=== PATIENT | female | born 1955 | race Caucasian/White ===

== ENCOUNTER 2016-05-27 06:25 | Inpatient (IN) | payer BC ==
--- NOTE | 2016-05-16 00:12 | HP ---
ADMISSION HISTORY AND PHYSICAL: DATE OF ADMISSION: 05/27/16 ATTENDING SURGEON: Kodak Acosta MD (dictated by JEANMARIE Staton) CHIEF COMPLAINT: Morbid obesity. HISTORY OF PRESENT ILLNESS: This is a 60-year-old female who first presented to our for bariatric evaluation in September 2015. Her weight and dietary record are outlined in her chart record. She completed baseline lab work, which showed a normal serum cortisol and TSH. Her vitamin D was low at 24.1 and she has since maintained vitamin D supplementation. She was also noted to be low on vitamin B1 and has had subsequently maintained a Super B-Complex supplement. A esophagogram/barium swallow had been performed in 2008 showing normal esophageal and gastric anatomy. She did not require any further diagnostic imaging. She did complete nutritional and psychological evaluations. She has been seen on a number of occasions by Dr. Acosta who has felt her to be an appropriate candidate for surgery. She understands the indications, risks, benefits, and alternatives of surgery and would like to proceed as scheduled with laparoscopic sleeve gastrectomy. PAST MEDICAL HISTORY: 1. Morbid obesity. 2. Obstructive sleep apnea (on CPAP). 3. Impaired fasting glucose. 4. ROBERTSON (hypertension). 5. Dyslipidemia. 6. Degenerative joint disease. 7. Asymptomatic cholelithiasis (the patient did have discussion with Dr. Acosta regarding possible cholecystectomy in conjunction with her planned surgery but this is felt at this point to be unnecessary). 8. Allergic rhinitis. PAST SURGICAL HISTORY: Include: 1. Right total knee arthroplasty. 2. Bilateral LASIK surgery. 3. Right carpal tunnel release. 4. x1 (via low transverse incision). CURRENT MEDICATIONS: 1. Lisinopril 5 mg once daily. 2. Singulair 10 mg once daily. 3. Naproxen 500 mg b.i.d. 4. Ambien 5 mg at bedtime p.r.n. for insomnia (uses infrequently). 5. Estrace vaginal cream p.r.n. 6. Valtrex p.r.n. for oral herpes (has not needed recently). 7. Vitamin D3 2000 IU once daily. 8. Magnesium 400 mg q.p.m. (for leg cramps). 9. Probiotic once daily. 10. Cinnamon 2000 mg once daily. 11. Super B-Complex once daily. DRUG ALLERGIES: MELOXICAM (Rash) (she does tolerate other NSAIDs). FAMILY HISTORY: Negative for anesthesia problems, bleeding, or clotting disorders. SOCIAL HISTORY: The patient is . She is employed as an RN in the Gastroenterology Department at [employer] She is a lifelong nonsmoker. Drinks alcohol infrequently and denies other drug use. REVIEW OF SYSTEMS: General: No recent constitutional symptoms or acute illnesses. HEENT: No recent problems reported. Cardiovascular: History of hypertension. No history of chest pain, palpitations, or heart murmur. Respiratory: No history of asthma. Her allergic rhinitis symptoms are currently well controlled. GI: No GERD symptoms. No lower GI symptoms. Colonoscopy done in 2005 with recommended repeat in 10 years. : No problems reported. SLEEVER: She is due for annual breast and pelvic exams in May with no interval problems reported. Mammogram also done within the past year. Musculoskeletal: Ongoing left knee pain with anticipation at some point in the future of left knee replacement. She has done well from her right knee replacement. Skin: No skin lesions or rashes of concern. Neuropsychiatric: No additions. Endocrine: Impaired fasting glucose with most recent A1c of 6.1. No history of thyroid dysfunction. PHYSICAL EXAMINATION GENERAL: Well-nourished obese female, in no acute distress. VITAL SIGNS: Height 66 inches, weight 250 pounds, BMI 40.3, blood pressure 144/ 84, pulse 62, and respirations 18. HEENT: Pupils equal, round, and reactive. EOMs intact. No conjunctival pallor. Oropharynx: Teeth in good repair. No intraoral lesions. Neck: no lymphadenopathy, thyromegaly, or masses. LUNGS: Clear to auscultation. No rales or wheezes. HEART: Regular rate and rhythm. No murmur noted. BREAST: Not reexamined. ABDOMEN: Obese, soft, and nontender to palpation. No palpable masses or organomegaly. GENITALIA: Not done. RECTAL: Not done. BACK: No spinous process or CVA tenderness. EXTREMITIES: No edema. NEUROLOGIC: Grossly intact. SKIN: Warm and dry. No suspicious rashes or lesions noted. IMPRESSION: Morbid obesity. PLAN: Laparoscopic sleeve gastrectomy. JEANMARIE STATON CC: Eryn Monae NP, at [facility]* [id number]/CPS #: [id number] MTDD
[~2016-05-27 06:25] MED LIST: Buffered Lidocaine 1% SYR 3ML* 3 ML/SYR SYRINGE INTRADERM ONE; Dexamethasone IV* 4 MG/ML 1 ML (4 MG) IV SLOW PU ONE; Famotidine IV* 10 MG/ML 2 ML (20 mg) IV ONE; Scopolamine 1.5 mg* PATCH TRANSDERM ONE
[2016-05-27] MEDS ORDERED: Bupivacaine 0.5% W/EPI SDV* 30 ML VIAL ONE (06:57)
[2016-05-27] MEDS ORDERED: Buffered Lidocaine 1% SYR 3ML* 3 ML/SYR SYRINGE ONE (07:06)
[2016-05-27] MEDS ORDERED: ceFAZolin 2 GM PREMIX (*) 2 GM/50 ML BAG IVPB ONE (07:06)
[2016-05-27] MEDS ORDERED: Heparin VIAL(*) 5000 UNITS/ML VIAL (FIVE THOUSAND) ONE (07:06)
[2016-05-27] MEDS ORDERED: Dexamethasone IV* 4 MG/ML 1 ML (4 MG) ONE (07:06)
[2016-05-27] MEDS ORDERED: Famotidine IV* 10 MG/ML 2 ML (20 mg) ONE (07:06)
[2016-05-27] MEDS ORDERED: Scopolamine 1.5 mg* PATCH ONE (07:06)
[2016-05-27] MEDS ORDERED: Surgical Lubricant STERILE* 120 GM TOP.GEL ONE (07:30)
[2016-05-27] MEDS ORDERED: Propofol* 10 MG/ML 20 ML BTL IV PUSH ONE (07:44)
[2016-05-27] MEDS ORDERED: Rocuronium* 10 MG/ML VIAL ONE (07:44)
[2016-05-27] MEDS ORDERED: Lidocaine 2% MPF* 2 ML VIAL ONE (07:44)
[2016-05-27] MEDS ORDERED: Midazolam* 1 MG/ML 5 ML VIAL (5 MG) ONE (07:45)
[2016-05-27] MEDS ORDERED: fentaNYL* 50 MCG/ML 2 ML VIAL (100 MCG VIAL) ONE ×5 (07:45→11:26)
[2016-05-27] MEDS ORDERED: PROCHLORPERAZINE INJ 5 MG/ML 2 ML VIAL IV PRN (08:09)
[2016-05-27] MEDS ORDERED: Acetaminophen IV 1GM/100ML * 100 ML IVPB ONE (08:09)
[2016-05-27] MEDS ORDERED: EPHEDrine (Pressors)* 50 MG/ML VIAL ONE (08:53)
[2016-05-27] MEDS ORDERED: Ketorolac INJ* 30 MG/ML 1 ML VIAL ONE (08:59)
[2016-05-27] MEDS ORDERED: Ondansetron INJ* 2 MG/ML VIAL ONE (09:13)
[2016-05-27] MEDS ORDERED: Glycopyrrolate IV* 0.2 MG/ML 1 ML VIAL ONE (09:19)
[2016-05-27] MEDS ORDERED: Neostigmine Methylsulfate* 2 MG/2 ML SYRINGE ONE (09:19)
[2016-05-27] MEDS ORDERED: Acetaminophen IV 1GM/100ML * 100 ML ONE (09:26)
[2016-05-27] MEDS ORDERED: Acetaminophen ADULT LIQ* 650 MG/20.3 ML UDC PO PRN (09:28)
[2016-05-27] MEDS ORDERED: Ondansetron INJ* 2 MG/ML VIAL IV PRN (09:28)
--- NOTE | 2016-05-27 09:33 | SURGPN ---
Brief Operative Note - Surgery Procedures: PREOP/POSTOP DX: MORBID OBESITY PROC: LAP SLEEVE GASTRECTOMY SURG: MECENAS ASSIST: KIMBERLY ANES: GET/DALE EBL: MIN IVF: LR SPEC: PORTION OF STOMACH DRAIN: NONE COMPL: NONE COND: STABLE TO RR EXTUBATED.
[2016-05-27] MEDS ORDERED: Famotidine IV * 20 MG in NS 0.9% 100 ML* 100 ML IVPB SCH (10:00)
[2016-05-27] MEDS: fentaNYL* 50 MCG/ML 2 ML VIAL (100 MCG VIAL) IV PRN ×5 (10:01→11:35)
[2016-05-27] MEDS ORDERED: Morphine INJ* 10 MG/ML 1 ML CARPUJECT ONE (10:13)
[2016-05-27] MEDS: Morphine INJ* 2 MG/ML 1 ML CARPUJECT IV PRN ×2 (10:17→10:38)
[2016-05-27] MEDS ORDERED: diPHENhydraMINE IV* 50 MG/ML 1 ml VIAL (BENADRYL) SLOW PUSH SCH (12:30)
[2016-05-27] MEDS: Heparin VIAL(*) 5000 UNITS/ML VIAL (FIVE THOUSAND) SUBCUT SCH ×2 (13:28→21:55)
[2016-05-27] MEDS: Ketorolac INJ* 30 MG/ML 1 ML VIAL IV PRN (13:28)
[2016-05-27] MEDS ORDERED: diPHENhydraMINE IV* 50 MG/ML 1 ml VIAL (BENADRYL) SLOW PUSH PRN (13:36)
[2016-05-27] MEDS: HYDROmorphone INJ* 1 MG/ML CARPUJECT SYRINGE IV PRN ×2 (15:12→21:52)
[2016-05-27] MEDS: Famotidine IV* 10 MG/ML 2 ML (20 mg) IV SCH (18:36)
[2016-05-28] MEDS: HYDROmorphone INJ* 1 MG/ML CARPUJECT SYRINGE IV PRN ×2 (01:38→06:08)
--- NOTE | 2016-05-28 01:55 | OP ---
DATE OF OPERATION: 05/27/16 - ROOM #353 DATE OF : 55 SURGEON: Dr. Acosta. SAP SOLUTION MANAGER CONSULTANT: Que Collnis MD ANESTHESIOLOGIST: Kenisha Espino MD ANESTHESIA: General endotracheal. PRE-OP DIAGNOSIS: Morbid obesity. POST-OP DIAGNOSIS: Morbid obesity. OPERATIVE PROCEDURE: Laparoscopic sleeve gastrectomy. ESTIMATED BLOOD LOSS: Minimal. IV FLUIDS: Crystalloids. SPECIMEN: Portion of stomach. DRAINS: None. COMPLICATIONS: None. COUNTS: The instrument, needle, and sponge counts were correct. DESCRIPTION OF PROCEDURE: The patient was brought to the operating room and placed on table supine. Sequential compression devices were placed on both lower extremities. General anesthesia was administered. The patient was positioned and padded appropriately. She received appropriate intravenous antibiotics. The patient's abdomen was prepped and draped in the usual sterile fashion. Time-out was performed. Local anesthetic was infiltrated into the skin and soft tissue prior to making each incision. Entry to the abdomen was through a left upper quadrant incision accommodating a 5-mm optical trocar. After accessing the peritoneal cavity, carbon dioxide was insufflated to a pressure of 15 mmHg. Under direct visualization, a 12 mm bladeless trocar was placed in the supraumbilical midline , a 15 mm bladeless trocar was placed in the right upper quadrant, a 5 mm bladeless trocar was placed in the left upper quadrant laterally. A Sebas retractor was placed percutaneously in a subxiphoid position and used to elevate the left lobe of the liver. Gastric anatomy appeared normal. The mobilization of the stomach proceeded along the greater curvature starting 6 cm proximal to the pylorus. The LigaSure was used to devascularize the greater curvature all the way up to gastroesophageal junction. Subsequently, a sleeve gastrectomy was performed over a 40-Mexican bougie with a black reinforce stable cartilage on the antrum and purple reinforced staple cartilages along the remaining portions of the stomach. Once the sleeve gastrectomy was performed, the bougie was removed. Staple lines were inspected and noted to be intact and hemostatic. The specimen was removed through the right upper quadrant port site , which was subsequently closed with 0 Polysorb in interrupted fashion to approximate the fascia. The remaining trocars were removed under direct visualization. Carbon dioxide was released. The skin incisions were closed with daniela. Dressings were applied. The patient tolerated the procedure well. She was extubated and transferred to recovery room in stable condition. CC: Eryn Monae NP* [id number]/CPS #: [id number] MARIO
[2016-05-28] MEDS: Famotidine IV* 10 MG/ML 2 ML (20 mg) IV SCH ×2 (06:05→17:43)
[2016-05-28] MEDS: Heparin VIAL(*) 5000 UNITS/ML VIAL (FIVE THOUSAND) SUBCUT SCH ×3 (06:11→22:25)
--- NOTE | 2016-05-28 10:15 | PN ---
Progress Note - Progress Note SOAP: Subjective: []awake,walking in halls,taking clears,voiding,minimal pain Objective:lungs clear bilat;heart RRR,no m/r/g;abd:+bs,soft,incisions covered with dressings,not removed,no erythema;extremities:nontender,no edema Vital Signs Temp 97.9 F 05/28/16 07:54 Pulse 62 05/28/16 07:54 Resp 20 05/28/16 10:33 BP 138/92 05/28/16 07:54 Pulse Ox 98 05/28/16 07:54 Intake & Output 05/27/16 05/28/16 05/28/16 18:59 06:59 18:59 Intake Total 2500 1847 898 Output Total 1300 700 400 Balance 1200 1147 498 Weight 243 lb 12.8 oz Intake: IV Fluids 2500 1847 898 LR 2450 1847 898 NS 50ML, Cefazolin 2G 50 Oral 0 Output: Urine 1300 700 400 Assessment:POD #1 s/p lap sleeve gastrectomy,doing well [] Plan:continue keith clears,IVF,encourage ambulation and IS;resume Lisinopril, likely disch 05/29/16. []
[2016-05-28] MEDS: Lisinopril TAB* 5 MG PO SCH (10:33)
[2016-05-28] MEDS: HYDROcodone/ACET. 7.5/325 LIQ* 15 ML UDC PO PRN ×2 (10:33→22:24)
[2016-05-28] MEDS: D5W 1/2 NS KCl 20 Meq 1000 ML* 1,000 ML IV SCH ×2 (14:07→22:29)
[2016-05-28] MEDS: Ketorolac INJ* 30 MG/ML 1 ML VIAL IV PRN (14:10)
[2016-05-29] MEDS: HYDROcodone/ACET. 7.5/325 LIQ* 15 ML UDC PO PRN ×2 (04:44→08:21)
[2016-05-29] MEDS: Heparin VIAL(*) 5000 UNITS/ML VIAL (FIVE THOUSAND) SUBCUT SCH (06:00)
[2016-05-29] MEDS: Famotidine IV* 10 MG/ML 2 ML (20 mg) IV SCH (06:00)
[2016-05-29] MEDS: D5W 1/2 NS KCl 20 Meq 1000 ML* 1,000 ML IV SCH (06:00)
[2016-05-29 07:53] VITALS: BP 133/68
[2016-05-29] MEDS: Lisinopril TAB* 5 MG PO SCH (08:20)
--- NOTE | 2016-05-29 09:03 | PN ---
Progress Note - Progress Note SOAP: Discharge Note Subjective:awake,tolerating clears,minimal discomfort,walking,no dysuria,wants to go home [] Objective:lungs:clear bilat;Heart:RRR,no m/r/g;Abd;+bs,soft,all incisions intact with daniela,mild surrounding ecchymosis,no drainage;extremities: nontender,mild non pitting edema Vital Signs Temp 98.8 F 05/29/16 07:46 Pulse 74 05/29/16 07:46 Resp 16 05/29/16 08:21 BP 133/68 05/29/16 07:46 Pulse Ox 94 05/29/16 07:46 Intake & Output 05/28/16 05/29/16 05/29/16 18:59 06:59 18:59 Intake Total 1318 3181 Output Total 1050 3400 600 Balance 268 -219 -600 Intake: IV Fluids 898 1941 D5W 1/2 NS 20 meq KCL 1941 LR 898 IVPB 100 Famotidine 100 Oral 420 1140 Output: Urine 1050 3400 600 [] Assessment:POD#2 s/p sleeve gastrectomy,doing very well [] Plan:Discharge home,instructions reviewed,questions answered,followup appointment at [facility] scheduled []
--- NOTE | 2016-05-29 10:36 | DS ---
DISCHARGE SUMMARY: DATE OF ADMISSION: 05/27/16 DATE OF DISCHARGE: 05/29/16 ATTENDING PHYSICIAN: Dr. Kodak Acosta. HOSPITAL COURSE: Please refer to admission history and physical for admission details. The patient was taken to the operating room on 05/27/16 and underwent laparoscopic sleeve gastrectomy. She has had an uneventful postoperative course and as of the morning of discharge was tolerating 120 cc of clear liquids per hour and her pain was well controlled and she was ambulating. PHYSICAL EXAMINATION: Vital Signs: Temp max 98.4, blood pressure 133/68, pulse 74 and regular, respiratory rate 16, and O2 saturation on room air 94%. She is in no acute distress, sitting up at the edge of the bed taking fluids. Lungs: Breath sounds bilaterally clear and equal. No rales or wheezes. Heart : Regular rate and rhythm. No murmurs, rubs, or gallops. Abdomen: Active bowel sounds. Soft. Laparoscopic incision site is intact with daniela with moderate amount of ecchymosis around the two largest incisions, no active bleeding or drainage. Extremities are warm without tenderness and there is mild non-pitting edema. IMPRESSION: Status post laparoscopic sleeve gastrectomy, doing well. PLAN: Discharge home today, she will resume her usual lisinopril and Singulair ; she will follow the prescribed bariatric dietary guidelines and understands the importance of ambulation; a followup appointment was scheduled at the [facility] office on , 06/05/16, and she knows to call sooner with any concerns. LISETTE PRIEST NP CC: Dr. Acosta, [facility]; Eryn Monae [place] * [id number]/[facility] #: [id number] MARIO
[2016-05-30] MEDS ORDERED: Scopolamine PATCH Remove* 1 NOTE MISC PATCH OFF ONE (06:00)
== END 2016-05-29 10:55 | disposition home or self-care (01) | DRG 403 ==
LOC: AA 06:25 → SSU 11:50
PROVIDERS: ADMIT Surgery; ATTEND Surgery
PROC: 0DB64Z3 Excision of Stomach, Percutaneous Endoscopic Approach, Vertical (ICD-10-PCS; principal; 2016-05-27 08:00)
DX: E66.01 Morbid (severe) obesity due to excess calories (principal); K75.81 Nonalcoholic steatohepatitis (NASH); I10 Essential (primary) hypertension; G47.33 Obstructive sleep apnea (adult) (pediatric); R73.01 Impaired fasting glucose; M19.90 Unspecified osteoarthritis, unspecified site; K80.20 Calculus of gallbladder without cholecystitis without obstruction; J30.9 Allergic rhinitis, unspecified; Z96.651 Presence of right artificial knee joint; Z88.8 Allergy status to other drugs, medicaments and biological substances; Z72.89 Other problems related to lifestyle; Z68.41 Body mass index [BMI] 40.0-44.9, adult
CPT/HCPCS: 88307; 94760; A9270-GY; J0690; J1100; J1170; J1644; J1885; J2250; J2270; J2405; J2704; J3010

== ENCOUNTER 2019-07-21 06:18 | Inpatient (IN) | payer BC ==
--- NOTE | 2019-07-12 13:59 | HP ---
HISTORY AND PHYSICAL: DATE OF ADMISSION/SURGERY: 07/21/19 DATE OF OFFICE VISIT: 07/11/19 SURGEON: Deja Messina MD * (DICTATED BY JEANMARIE ZUNIGA) PROCEDURE: Left total knee arthroplasty. CHIEF COMPLAINT: Left knee pain. HISTORY OF PRESENT ILLNESS: Ms. Dumont is a 63-year-old female with end-stage osteoarthritis of the left knee. She has failed conservative treatment and elected to proceed with a left total knee arthroplasty. PAST MEDICAL HISTORY: GERD and hypertension. PAST SURGICAL HISTORY: Gastric sleeve, right total knee arthroplasty, right carpal tunnel release, and . CURRENT MEDICATIONS: 1. Lisinopril 2.5 mg daily. 2. Vitamin D3. 3. Vitamin B12. 4. Singulair. 5. Citracal. 6. Multivitamin. 7. Lutein. 8. Biotin. 9. Omeprazole 20 mg daily. ALLERGIES: To MELOXICAM. FAMILY HISTORY: Diabetes, cancer, and hypertension. SOCIAL HISTORY: She is a 63-year-old female. She lives with her . She does not smoke. REVIEW OF SYSTEMS: A complete 14-point review of systems was reviewed with the patient. It was positive for GERD. She denies history of DVT, PE, hepatitis, HIV, or anesthesia problems. PHYSICAL EXAMINATION GENERAL: She is well developed, well nourished, in no acute distress. VITAL SIGNS: She stands 66 inches tall, weighs 186 pounds. Her blood pressure is 108/62, her heart rate is 89. HEENT: Normocephalic, atraumatic. NECK: Supple. No palpable lymph nodes. PULMONARY: The lungs are clear to auscultation bilaterally. CARDIO: Regular rate and rhythm. Strong S1, S2. ABDOMEN: Soft, nontender, nondistended. NEUROLOGICAL: She is alert and oriented x3. MUSCULOSKELETAL: Left lower extremity: The skin is intact. There are no open wounds or abrasions. There is a moderate effusion of the left knee joint, some tenderness along the medial and lateral joint line. Range of motion is 10 to 120 degrees of flexion. She is able to dorsiflex and plantar flex, has a 2+ dorsalis pedis pulse and intact sensation. ASSESSMENT AND PLAN: Ms. Dumont is a 63-year-old female with severe end-stage osteoarthritis of the left knee. She has failed conservative treatment and elected to proceed with a left total knee arthroplasty. The surgery is scheduled for 07/21/[address] Messina discussed the risks and benefits of the surgery at today's visit and all of her questions were answered. She will follow up with Dr. Messina 2 weeks after the surgery. JEANMARIE ZUNIGA [id number]/[facility] #: [id number] MARIO
[~2019-07-21 06:18] MED LIST changes: -Buffered Lidocaine 1% SYR 3ML* 3 ML/SYR SYRINGE INTRADERM ONE; +Buffered Lidocaine 1% SYRIN* 1 ML/SYRINGE INTRADERM ONE; -Dexamethasone IV* 4 MG/ML 1 ML (4 MG) IV SLOW PU ONE; +Lactated Ringers 1000 ML Bag* 1,000 ML IV SCH; -Scopolamine 1.5 mg* PATCH TRANSDERM ONE; +Tranexamic Acid 1,000 MG in NS 0.9% 50 ML* (outpatient use) IV SCH
--- OUTSIDE RECORDS SUMMARY | 2019-07-21 06:22 | XMS REPORT | Continuity of Care Document ---
:1955 External Reference #:[id number] Author Name REJI Shi Address [address] [place] [address] Problems Active Problems Provider Date Pure hypercholesterolemia Carin Rodriguez M.D. Onset: 09/27/2010 Type 2 diabetes mellitus Carin Rodriguez M.D. Onset: 09/27/2010 Essential hypertension Carin Rodriguez M.D. Onset: 09/27/2010 Social History Type Date Description Comments Sex Unknown Cigarette Use Negative For current cigarette smoker ETOH Use Rarely consumes alcohol Tobacco Use Start: Unknown Patient has never smoked Recreational Drug Use Denies Drug Use Smoking Status Reviewed: 08/20/17 Patient has never smoked Enjoy Exercising Enjoys exercising some walking Allergies, Adverse Reactions, Alerts Active Allergies Reaction Severity Comments Date Mobic rash 06/13/2015 Inactive Allergies NKDA 09/27/2010 Medications Active Medications SIG Qnty Indications Ordering Date Provider Naproxen take one tablet by 60tabs Edgar Cifuentes 11/17/2018 500mg mouth twice a day REJI Orozco Tablets with food for pain/inflammation Montelukast Sodium take 1 tablet by 90tabs Swapna Horan 05/24/2018 mouth at bedtime Hebert RHollie 10mg Tablets Citracal 2 tabs daily Angie 08/20/2017 Petites/Vitamin D Shortle, CORRECTIONAL CLASSIFICATION COUNSELOR [id number] Tablets Omeprazole 1 by mouth every 90caps Edgar Cifuentes 08/20/2017 20mg day at bedtime REJI Orozco Capsules DR Lutein 20 1 po qd Eryn Michele, 08/08/2016 Capsules CLINICAL REHABILITATION SPECIALIST-C Vitamin D3 2 po qd Eryn Michele, 08/08/2016 1000Unit CLINICAL REHABILITATION SPECIALIST-C Tablets Vitamin B12 1 sl qd Eryn Michele, 08/08/2016 1000mcg CLINICAL REHABILITATION SPECIALIST-C Tablets ER Estrace apply 05/19 42.5units N76.3 Shawnti R. 01/31/2008 0.1mg/GM applicator twice a Storm, CLINICAL REHABILITATION SPECIALIST-C Cream week as needed vaginal dryness Valtrex take 4 tablets 90tabs B00.9 Shawnti R. 01/05/2007 500mg twice a day then Storm, CLINICAL REHABILITATION SPECIALIST-C Tablets daily thereafter as directed Ambien 05/19 to 1 tablet 30tabs N95.1 Shawnti R. 11/03/2005 10mg Tablets every night at Storm, CLINICAL REHABILITATION SPECIALIST-C bedtime as needed sleep Lisinopril take 1 tablet 90tabs I10 Shawnti R. 2.5mg every day Storm, CLINICAL REHABILITATION SPECIALIST-C Tablets Turmeric Unknown 500mg Capsules Biotin Unknown 5000mcg Capsules Immunizations CPT Code Status Date Vaccine Lot # [id number] Given 12/12/2016 Zoster Vaccine [id number] Given 08/08/2016 Td Age 7 to adult (Tenivac, Decavac, [employer]) [id number] Given 08/02/2015 Influenza Virus Vaccine, Quadrivalent, 3 Yr > Quad, Preserv Free 65174 Given 02/19/2010 Influenza Vaccine-Preservative Free 3 Yrs And Above 80759 Given 10/08/2006 Tdap (Adacel) Vital Signs Date Vital Result Comment 07/01/2019 4:01pm Weight 184.00 lb Weight 83.462 kg BP Systolic 110 mmHg BP Diastolic 70 mmHg Heart Rate 72 /min Body Temperature 97.4 F Respiratory Rate 16 /min 11/16/2018 10:29am Weight 180.00 lb Weight 81.648 kg BP Systolic 120 mmHg BP Diastolic 80 mmHg Heart Rate 64 /min Body Temperature 98.1 F Respiratory Rate 16 /min Height 64.5 inches 5'4.50" BMI (Body Mass Index) 30.4 kg/m2 O2 % BldC Oximetry 97 % Results Test Acquired Date Facility Test Result H/L Range Note CBC Auto 07/01/2019 [facility] White Blood 7.7 10^3/ uL Normal 3.5-10.8 Diff [phone] Count Red Blood Count 4.63 10^6/uL Normal 3.70-4.87 Hemoglobin 13.3 g/dL Normal 12.0-16.0 Hematocrit 40 % Normal 35-47 Mean Corpuscular Volume 86 fL Normal 80-97 Mean Corpuscular Hemoglobin 29 pg Normal 27-31 Mean Corpuscular HGB Conc 33 g/dL Normal 31-36 Red Cell Distribution Width 13 % Normal 10-15 Platelet Count 253 10^3/uL Normal 150-450 Mean Platelet Volume 8.3 fL Normal 7.4-10.4 Abs Neutrophils 4.7 10^3/uL Normal 1.5-7.7 Abs Lymphocytes 1.9 10^3/uL Normal 1.0-4.8 Abs Monocytes 0.7 10^3/uL Normal 0-0.8 Abs Eosinophils 0.2 10^3/uL Normal 0-0.6 Abs Basophils 0.1 10^3/uL Normal 0-0.2 Abs Nucleated RBC 0.0 10^3/uL Granulocyte % 61.7 % Lymphocyte % 24.2 % Monocyte % 9.6 % Eosinophil % 2.8 % Basophil % 1.7 % Nucleated Red Blood Cells % 0.1 Comp Metabolic 07/01/2019 [facility] Sodium 141 mmol/ L Normal 135-145 Panel [phone] Potassium 4.1 mmol/L Normal 3.5-5.0 Chloride 104 mmol/L Normal 101-111 Co2 Carbon Dioxide 31 mmol/L Normal 22-32 Anion Gap 6 mmol/L Normal 2-11 Glucose 83 mg/dL Normal 70-100 Blood Urea Nitrogen 21 mg/dL Normal 6-24 Creatinine 0.81 mg/dL Normal 0.51-0.95 BUN/Creatinine Ratio 25.9 High 8-20 Calcium 10.2 mg/dL Normal 8.6-10.3 Total Protein 7.3 g/dL Normal 6.4-8.9 Albumin 4.7 g/dL Normal 3.2-5.2 Globulin 2.6 g/dL Normal 2-4 Albumin/Globulin Ratio 1.8 Normal 1-3 Total Bilirubin 0.70 mg/dL Normal 0.2-1.0 Alkaline Phosphatase 84 U/L Normal 34-104 Alt 15 U/L Normal 7-52 Ast 20 U/L Normal 13-39 Egfr Non- 71.4 >60 Egfr 86.4 >60 1 Laboratory test 07/01/2019 [facility] Hemoglobin A1c 5.6 % Normal 4.0-5.6 2 finding [phone] (Glyco HGB) Order 07/01/2019 In Office EKG <pending > 1 Because ethnic data is not always readily available, this report includes an eGFR for both -Americans and non- Americans. The National Kidney Disease Education Program (NKDEP) does not endorse the use of the MDRD equation for patients that are not between the ages of 18 and 70, are , have extremes of body size, muscle mass, or nutritional status, or are non- or non-. According to the National Kidney Foundation, irrespective of diagnosis, the stage of the disease is based on the level of kidney function: Stage Description GFR(mL/min/1.73 m(2)) 1 Kidney damage with normal or decreased GFR 90 2 Kidney damage with mild decrease in GFR 60-89 3 Moderate decrease in GFR 30-59 4 Severe decrease in GFR 15-29 5 Kidney failure <15 (or dialysis) 2 Therapeutic target for the treatment of diabetes mellitus patients is <7% HBA1C, and in selective patients <6.0%. Please refer to [place] [employer] Association diabetic care guidelines for further information. Procedures Date Code Description Status 07/01/2019 52813 EKG, at Least 12 Leads w/Interpretation and Report Completed 05/18/2015 15586893 Colonoscopy Completed 05/18/2015 [id number] Mammogram Completed Medical Devices Description No Information Available Encounters Description No Information Available Assessments Date Code Description Provider 07/01/2019 Z01.818 Encounter for other preprocedural REJI Shi examination 07/01/2019 M17.12 Unilateral primary osteoarthritis, left REJI Shi knee Plan of Treatment 07/01/2019 - JESSICA Shi-CZ01.818 Encounter for other preprocedural examinationComments:medically stable for planned [id number] Unilateral primary osteoarthritis, left knee Functional Status Description No Information Available Mental Status Description No Information Available Referrals Description No Information Available
--- OUTSIDE RECORDS SUMMARY | 2019-07-21 06:22 | XMS REPORT | Continuity of Care Document ---
:1955 External Reference #:[id number] Author Name Deja Messina M.D. (transmitted by agent of provider Radha Martínez) Address [address] [place] [address] Care Team Providers Name Role Phone [facility] Medicine - Family Care Team Information Rail Technician Medicine Problems Active Problems Provider Date Localized, primary osteoarthritis Deja Messina M.D. Onset: 12/06/2014 Arthroplasty of knee Deja Messina M.D. Onset: 07/10/2017 Social History Type Date Description Comments Sex Unknown Smokeless Tobacco Never Used Smokeless Tobacco ETOH Use Rarely consumes alcohol Tobacco Use Start: Unknown Patient has never smoked Smoking Status Reviewed: 07/11/19 Patient has never smoked Exercise Type/Frequency Exercises regularly Allergies, Adverse Reactions, Alerts Active Allergies Reaction Severity Comments Date Mobic Urticaria 10/26/2013 Meloxicam rash 01/20/2014 Inactive Allergies NKDA 06/27/2013 Medications Active Medications SIG Qnty Indications Ordering Date Provider Amoxicillin take 4 pills, 2 g 1 4caps Deja Messina, 03/30/2019 500mg hour before dental M.D. Capsules or gi procedure Naproxen Take 1 Tablet By 60tabs Cy Harris M.D. 12/29/2017 500mg Mouth Twice A Day Tablets as Needed Lisinopril 1 po qd 90tabs Unknown 2.5mg Tablets Vitamin D 3 2000 units daily Unknown Vitamin B12 sublingual tab Unknown 500mcg Flintstones Complete 1 once daily Unknown 60mg Chewtabs Singulair 1 by mouth every Unknown 10mg day Tablets Citracal daily Unknown Petites/Vitamin D [id number] Tablets Lutein 20 otc daily Unknown Capsules Biotin 1 tab daily otc Unknown 5000mcg Capsules Omeprazole 1 by mouth every Unknown 20mg day Capsules DR Medications Administered in Office Medication SIG Qnty Indications Ordering Provider Date Deplaina 40MG Deja Messina M.D. 03/11/2019 Injection Lakeshaomedrol 40MG Deja Messina M.D. 11/22/2018 Injection Depomedrol 40MG Deja Messina M.D. 08/20/2018 Injection Yazminrol 40MG Deja Messina M.D. 05/21/2018 Injection Yazminrol 40MG Deja Messina M.D. 02/12/2018 Injection Yazminrol 40MG Deja Messina M.D. 10/09/2017 Injection Yazminrol 40MG Deja Messina M.D. 07/10/2017 Injection Yazminrol 40MG Deja Messina M.D. 03/23/2017 Injection Yazminrol 40MG Deja Messina M.D. 12/17/2016 Injection Yazminrol 40MG Deja Messina M.D. 09/15/2016 Injection Depomedrol 40MG Deja Messina M.D. 06/16/2016 Injection Lakeshaomedrol 40MG Deja Messina M.D. 02/29/2016 Injection Yazminrol 40MG Deja Messina M.D. 08/20/2015 Injection Depomedrol 80MG Deja Messina M.D. 03/07/2015 Injection Lakeshaomedrol 80MG Deja Messina M.D. 12/06/2014 Injection Lakeshaomedrol 80MG Deja Messina M.D. 08/28/2014 Injection Lakeshaomedrol 80MG Deja Messina M.D. 05/31/2014 Injection Lakeshaomedrol 80MG Deja Messina M.D. 10/26/2013 Injection Synvisc Or Synvisc-One Injection 1 Deja Messina M.D. 08/31/2013 MG Injection Hyalagan Or Supartz, For Deja Messina M.D. 08/31/2013 Intra-Articular Inject Per Dose Injection Synvisc Or Synvisc-One Injection 1 Deja Messina M.D. 08/24/2013 MG Injection Synvisc Or Synvisc-One Injection 1 Deja Messina M.D. 08/17/2013 MG Injection Depomedrol 80MG Deja Messina M.D. 07/07/2013 Injection Depomedrol 80MG Deja Messina M.D. 06/27/2013 Injection Immunizations Description No Information Available Vital Signs Date Vital Result Comment 07/11/2019 2:08pm Height 66 inches 5'6" Weight 186.00 lb Heart Rate 89 /min BP Systolic 108 mmHg BP Diastolic 62 mmHg Body Temperature 97.2 F Pain Level 4 BMI (Body Mass Index) 30.0 kg/m2 03/11/2019 4:04pm Height 66 inches 5'6" Weight 170.00 lb Heart Rate 58 /min BP Systolic 118 mmHg BP Diastolic 88 mmHg Body Temperature 96.0 F BMI (Body Mass Index) 27.4 kg/m2 Results Description No Information Available Procedures Date Code Description Status 03/11/2019 02435 Inject/Drain Joint/Bursa Major W/O US Completed Medical Devices Description No Information Available Encounters Description No Information Available Assessments Date Code Description Provider 04/26/2019 M25.562 Pain in left knee Deja Messina M.D. 04/26/2019 M25.462 Effusion, left knee Deja Messina M.D. 04/26/2019 M17.12 Unilateral primary osteoarthritis, left knee Deja Messina M.D. 03/11/2019 M25.562 Pain in left knee Deja Messina M.D. 03/11/2019 M25.462 Effusion, left knee Deja Messina M.D. 03/11/2019 M17.12 Unilateral primary osteoarthritis, left knee Deja Messina M.D. Plan of Treatment Future Appointment(s):07/21/2019 8:30 am - Deaj Messina M.D. at [facility] Functional Status Description No Information Available Mental Status Description No Information Available Referrals Description No Information Available
[2019-07-21] MEDS ORDERED: ceFAZolin 2 GM PREMIX in ORs 2 GM/50 ML BAG ONE (06:44)
[2019-07-21] MEDS ORDERED: Famotidine IV* 10 MG/ML 2 ML (20 mg) ONE (06:45)
[2019-07-21] MEDS ORDERED: Buffered Lidocaine 1% SYRIN* 1 ML/SYRINGE INTRADERM ONE (06:45)
[2019-07-21] MEDS ORDERED: Lidocaine 1% MPF ** 5 ML VIAL ONE (07:09)
[2019-07-21] MEDS ORDERED: ROPIVACAINE 5 MG/ML 30 ML BTL (0.5%) ONE ×2 (07:09→07:54)
[2019-07-21] MEDS ORDERED: Midazolam* 1 MG/ML 5 ML VIAL (5 MG) ONE (07:31)
[2019-07-21] MEDS ORDERED: KETAMINE HCL* 50 MG/ML 10 ML VIAL ONE (08:12)
[2019-07-21] MEDS ORDERED: Dexamethasone IV* 4 MG/ML 1 ML (4 MG) ONE (08:18)
[2019-07-21] MEDS ORDERED: Ketorolac INJ* 30 MG/ML 1 ML VIAL ONE (08:18)
[2019-07-21] MEDS ORDERED: Ondansetron INJ* 2 MG/ML VIAL ONE (08:18)
[2019-07-21] MEDS ORDERED: Propofol* 10 MG/ML 20 ML BTL ONE (08:18)
[2019-07-21] MEDS ORDERED: DiMENhydriNATE IV* 50 MG/ML VIAL ONE ×2 (08:18→10:44)
[2019-07-21] MEDS ORDERED: Lidocaine 2% PF * 5 ML VIAL ONE (08:19)
[2019-07-21] MEDS ORDERED: diPHENhydraMINE PO* 25 MG PO PRN (09:31)
[2019-07-21] MEDS ORDERED: Morphine INJ* 2 MG/ML 1 ML SYRINGE (TWO MG - NEW SYRINGE VERSION) IV PRN (09:31)
[2019-07-21] MEDS ORDERED: Acetaminophen TAB* 325 MG PO PRN (09:31)
[2019-07-21] MEDS ORDERED: Ondansetron INJ* 2 MG/ML VIAL IV PRN (09:31)
[2019-07-21] MEDS ORDERED: Ondansetron ODT TAB* 4 MG PO PRN (09:31)
[2019-07-21] MEDS ORDERED: Magnesium Hydroxide LIQ* 30 ML UDC PO PRN (09:31)
[2019-07-21] MEDS ORDERED: diPHENhydraMINE IV* 50 MG/ML 1 ml VIAL (BENADRYL) IV PRN (09:31)
[2019-07-21] MEDS ORDERED: oxyCODONE/Acetamin 5/325 MG* TAB PO PRN ×2 (09:31→09:50)
[2019-07-21] MEDS ORDERED: HYDROmorphone INJ1* 1 MG/ML SYRINGE ONE (09:40)
[2019-07-21] MEDS ORDERED: HYDROmorphone INJ1* 1 MG/ML SYRINGE IV PRN (09:50)
[2019-07-21] MEDS ORDERED: Naloxone* 0.4 MG/ML 1 ML VIAL IV PRN (09:50)
[2019-07-21] MEDS ORDERED: DiMENhydriNATE IV* 50 MG/ML VIAL IV PUSH PRN (09:50)
[2019-07-21] MEDS ORDERED: Scopolamine 1.5 mg* PATCH ONE (11:12)
--- NOTE | 2019-07-21 11:18 | PN ---
Progress Note - Progress Note Date of Service: 07/21/19 Note: resting comfortably in recovery, pain well controlled. Able to DF/PF, 2+ DP pulse and intact sensation; dressing c/d/i
[2019-07-21] MEDS: Lactated Ringers 1000 ML Bag* 1,000 ML IV SCH ×2 (12:02→22:09)
[2019-07-21] MEDS: oxyCODONE/Acetamin 5/325 MG* TAB PO PRN ×2 (12:17→17:36)
[2019-07-21] MEDS: oxyCODONE TAB* 5 MG TAB PO PRN ×2 (14:31→20:14)
[2019-07-21] MEDS: ceFAZolin 1 GM ADVAN(*) 1 GM in NS 0.9% 50 ML* 50 ML IVPB SCH (16:07)
[2019-07-21] MEDS: Cyclobenzaprine TAB* 10 MG PO PRN (20:15)
[2019-07-21] MEDS: Magnesium Hydroxide LIQ* 30 ML UDC PO SCH (20:15)
[2019-07-21] MEDS: Docusate CAP* 100 MG PO SCH (20:15)
[2019-07-21] MEDS ORDERED: Melatonin 3 MG TAB PO PRN (20:54)
--- NOTE | 2019-07-21 21:13 | OP ---
Operative Report - Blank - Operative Report Date of Operation: 07/21/19 Note: COSME LILLY 1955 Date of Surgery: 07/21/19 Deja Messina MD [employer] Music Teacher: Maycol MURRY did help throughout the procedure with preparation of the knee, wound retraction, manipulation of the knee, and wound closure. Anesthesiologist: Dr. Goldberg Anesthesia Type: Spinal Preoperative Diagnosis: Left severe degenerative osteoarthritis of the knee Postoperative Diagnosis: As above Procedure Performed: Left Total Knee Arthroplasty Tourniquet time: 46 minutes Complications: None Specimen: Bone and cartilage from the left knee joint sent to pathology. Hardware Used: Cemented Mondragon and Nephew total knee hardware was used - For the femur a size 4 left oxinium legion posterior stabilized femoral component, for the tibia a size 4 left bart II tibial baseplate, for the insert a size 11mm 3-4 posterior stabilized articular polyethylene insert, and for the patella a size 32 3-peg all poly patella. Brief History/Indication: COSME LILLY was known in clinic and had a history of severe left knee pain and swelling. She failed conservative treatment with anti-inflammatories, pain pills, intra-articular injections and physical therapy. She elected to undergo left total knee arthroplasty due to continued pain and decreased quality of life. Radiographs showed severe end stage osteoarthritis of the knee with bone on bone contact. Informed consent was obtained from the patient. She understood the risks of surgery included but were not limited to: bleeding, infection, damage to nearby structures, intraoperative fracture, nerve palsy, failure of the hardware, early loosening, knee stiffness or loss of motion, anesthesia complications, stroke, heart attack , blood clot and . She wished to proceed. Intra-Operative Findings: Intraoperatively the patient was noted to have severe loss of cartilage in all 3 compartments of the knee. She had 15 degree valgus deformity to start the case. The MCL was noted to have laxity. Description of the Procedure: COSME LILLY was identified in the preanesthesia unit. Her left knee was marked as the correct operative side. Informed consent was signed and placed in the chart. The patient was taken to the operating room and placed under anesthesia without complication. A nicholas catheter was placed. A tourniquet was placed on the left thigh. The left lower extremity was prepped and draped in the usual sterile fashion. Preoperative time-out was made to correctly identify the patient, side and site. Appropriate intraoperative antibiotics were given within one hour of incision. Tourniquet was inflated. A midline incision was made and carried sharply down to the extensor mechanism. A new 10 blade was used to make a standard medial parapatellar arthrotomy. The patella was subluxed laterally. Electrocautery was used to dissect soft tissue off the superomedial tibia to the midsagittal plane. The knee was flexed up. The anterior horn of the lateral meniscus and the ACL were sharply incised. A drill was used to enter the distal femur. The intramedullary distal femoral cutting guide was pinned on the distal femur. The oscillating saw was used to make the distal femoral cut. Extreme lateral femoral condyle hypoplasia was noted and accounted for. The external rotation guide was pinned on the distal femur and the distal femur was sized to a size 4. The size 4 multi-cutting jig was pinned on the distal femur. The oscillating saw was used to make the appropriate 4 chamfer cuts. Next the PCL was completely released. The extramedullary tibial cutting guide was pinned on the proximal tibia and the oscillating saw was used to make the proximal tibial cut perpendicular to the mechanical axis of the tibia. The bone was carefully removed. The knee was brought out into full extension. The spacer block was placed and had excellent fit with the knee in full extension. The medial and lateral ligaments were well balanced. The flexion and extension gaps were well balanced. The knee was flexed up. Lamina tar chaser was placed both medially and laterally. Any remaining meniscus was removed with electrocautery. Curved osteotome was used to remove any posterior osteophytes. The tibial tray and drop al were placed and confirmed a satisfactory tibial cut. The size 4 left femoral trial was impacted onto the distal femur. This trial had excellent fit and stability. The box for the posterior stabilized implant was prepared using a box cut osteotome and a reamer. Next a tibial tray trial and 9 mm insert trial was placed. The knee was taken through a range of motion and had full extension to 130 degrees of flexion. Patellofemoral tracking was satisfactory. The patella was inverted and sized to a size 32. Three peg holes were drilled through the size 32 drill guide. The trial patella was placed and the knee was taken through a range of motion. There was satisfactory patellofemoral tracking. All trials were removed. The tibia was subluxed anteriorly and sized to a size 4. The proximal tibial was prepared with a size 4 keel punch. All bony cut surfaces were irrigated with sterile saline and dried. Final implants were cemented into place starting with the tibia, followed by the femur, and last the patella. A mm insert trial was placed and the knee was brought into full extension. Tourniquet was turned down and the knee was copiously irrigated with sterile saline. Electrocautery was used to obtain meticulous hemostasis. Once the cement had fully cured, the insert trial was removed. Any excess cement was removed from around the hardware and capsule. Final insert chosen was a 11 mm posterior stabilized Bart II articular insert size 3-4. Stability of the insert was checked and noted to be stable. The extensor mechanism was closed using number 1 vicryls. The rest of the incision was closed in a layered fashion using 0 and 2-0 vicryls. The skin was closed using 3-0 nylon suture. Sterile xeroform, 4x4s and webril were used to cover the incision. Juan Manuel wrap and cold pack were used to cover the dressings. The patients anesthesia was reversed without difficulty. She was taken to the PACU in stable condition. Intended weight-bearing will be as tolerated.
[2019-07-21] MEDS: Pantoprazole TAB * 40 MG TAB PO SCH (22:09)
--- NOTE | 2019-07-21 22:35 | CONS ---
HOSPITAL MEDICINE CONSULTATION REPORT: DATE OF CONSULT: 07/21/19 PROVIDER: Linda Lantigua NP ATTENDING PHYSICIAN WHILE IN THE HOSPITAL: Dr. Deja Messina.* CONSULTING PHYSICIAN: Dr. Katy Garber (dictated by Linda Lantigua NP). REASON FOR CONSULT: Co-management of chronic medical conditions. HISTORY OF PRESENT ILLNESS: Ms. Dumont is a 63-year-old female with a past medical history significant for hypertension, GERD, who presented to the [facility] for an elective left total knee arthroplasty with Dr. Messina. Please see dictated H and P from Anastasiya Orourke for complete details. In brief, the patient had ongoing pain and failed conservative measures, therefore opted to have a left total knee arthroplasty with Dr. Messina. Due to the patient's history of hypertension and GERD, Hospital Medicine was asked to help co-manage her care during this hospitalization. PAST MEDICAL HISTORY: Significant for hypertension, GERD. PAST SURGICAL HISTORY: 1. Gastric sleeve. 2. . 3. Right knee. 4. Carpal tunnel release. HOME MEDICATIONS: Include: 1. Omeprazole 20 mg p.o. daily. 2. Lisinopril 2.5 mg p.o. daily. 3. Singulair 10 mg p.o. daily. 4. Multivitamin 1 tablet p.o. daily. 5. Turmeric. 6. Vitamin. 7. Cranberry. 8. Biotin 10 mg. 9. Calcium with vitamin D. 10. BariActiv multivitamin 1 tablet in the morning. 11. BariActiv calcium D3 two tablets in the morning. 12. BariActiv iron/vitamin C 1 tablet. 13. ICaps 1 tablet in the morning. 14. Tylenol Arthritis 650 mg p.o. b.i.d. 15. Melatonin 5 mg at bedtime. 16. Turmeric root extract 500 mg. 17. Naproxen 500 mg p.o. b.i.d. ALLERGIES: MELOXICAM and SEASONAL ALLERGIES. FAMILY HISTORY: Maternal grandfather with a history of heart disease. Father with hypertension and AFib. Father with diabetes. Father with lung cancer, at the age of 78. Mother with pancreatic cancer, at the age of 48. SOCIAL HISTORY: The patient denies any smoking or illicit drug use. She does report occasional alcohol use. Surrogate decision maker in the event she is unable to make her own decisions is her . She is a full code. REVIEW OF SYSTEMS: The patient denies any recent fever, chills, chest pain, shortness of breath. Denies any nausea, vomiting, diarrhea, or abdominal pain. An 11-point review of systems was completed. Any pertinent positives were mentioned, otherwise were negative. PHYSICAL EXAM: General: At this time, Ms. Dumont is alert and oriented, resting in her hospital bed in PACU. She is in no acute distress. Vital Signs : Blood pressure 128/81, heart rate is 54, respirations 18, O2 saturation 96%, temperature was 97.6. HEENT: Head is atraumatic, normocephalic. Eyes: EOMs are intact. Sclerae anicteric and not pale. Oral mucosa is moist. Neck is supple. Lungs are clear to auscultation bilaterally. No wheezes, rales, or rhonchi. Cardiac: S1, S2. She is bradycardic with a regular rate. No rubs or gallops. The abdomen is soft and nontender. Bowel sounds are present x4. Extremities: She is able to move all 4 extremities. There is no clubbing or cyanosis. Neurologic: She is awake, alert, oriented x3. Speech is clear. Skin: She does have a dressing that is dry and intact to her left knee. Pedal pulses are +2 bilaterally. DIAGNOSTIC STUDIES/LAB DATA: WBCs are 7.7, RBCs are 4.63, hemoglobin 13.3, hematocrit is 40, platelet count was 253. INR was 1.03. BMP from 07/01/19, sodium 141, potassium 4.1, chloride 104, carbon dioxide was 31, anion gap was 6 , BUN was 21, creatinine 0.81, glucose was 83. Hemoglobin A1c was 5.6. ASTs were 20, ALTs were 15, alkaline phosphatase was 84. IMPRESSION AND PLAN: Ms. Dumont is a 63-year-old female with past medical history significant for hypertension and gastroesophageal reflux disease, who presented to [facility] for elective left total knee arthroplasty with Dr. Messina. Our recommendations are as follows: 1. Status post left total knee arthroplasty. Management per Orthopedics. PT/ OT per Orthopedics. Bowel regimen per Orthopedics. Pain management per Orthopedics. DVT prophylaxis per Orthopedics. 2. Hypertension. At this time, I would hold her hydrochlorothiazide. She can resume this at discharge. 3. Gastroesophageal reflux disease. She should continue on omeprazole as previously prescribed. 4. History of gastric sleeve. The patient should continue on her bariatric vitamins as previously prescribed. 5. FEN: She can have a regular diet. 6. Code status: She is a full code. 7. DVT prophylaxis: As per Orthopedics. TIME SPENT: Time spent on this consultation was 45 minutes, greater than half that time was spent at the bedside reviewing events leading thus far to her hospitalization, performing physical exam, and reviewing my plan of care. I have discussed this with my attending, Dr. Katy Garber; she is in agreement with my plan. Thank you for allowing us to follow in the management of this patient. We will follow from afar. Please do not hesitate to contact the Hospital Medicine team should you need further help in management of this patient. LINDA LANTIGUA NP [id number]/CPS #: [id number] MARIO
[2019-07-22] MEDS: ceFAZolin 1 GM ADVAN(*) 1 GM in NS 0.9% 50 ML* 50 ML IVPB SCH ×2 (00:01→08:18)
[2019-07-22] MEDS: oxyCODONE/Acetamin 5/325 MG* TAB PO PRN ×4 (00:02→21:09)
[2019-07-22] MEDS: oxyCODONE TAB* 5 MG TAB PO PRN ×2 (05:58→16:06)
[2019-07-22 07:05] LABS: Hematocrit 33 % (35-47); Hemoglobin 11.2 g/dL (12.0-16.0); Mean Platelet Volume 8.4 fL (7.4-10.4); Platelet Count 180 10^3/uL (150-450)
[2019-07-22] MEDS: Docusate CAP* 100 MG PO SCH ×2 (08:18→21:02)
[2019-07-22] MEDS: Cyclobenzaprine TAB* 10 MG PO PRN ×3 (08:19→21:02)
[2019-07-22] MEDS: Apixaban* 2.5 MG TAB PO SCH ×2 (08:19→21:03)
[2019-07-22] MEDS: Ferrous Sulfate TAB* 325 MG PO SCH (08:19)
[2019-07-22] MEDS: Cholecalciferol TAB* 1000 UNITS PO SCH ×2 (08:19→21:03)
[2019-07-22] MEDS: Calcium Carbonate TAB* 1250 MG (CALCIUM 500 MG) PO SCH ×2 (08:19→21:02)
[2019-07-22] MEDS: Magnesium Hydroxide LIQ* 30 ML UDC PO SCH ×2 (08:23→21:10)
[2019-07-22] MEDS: Lactated Ringers 1000 ML Bag* 1,000 ML IV SCH (08:55)
[2019-07-22] MEDS ORDERED: [UNRECOGNIZED DRUG - OTHER] PO SCH (09:00)
[2019-07-22] MEDS ORDERED: Vitamin THERAPEUTIC TAB PO SCH (09:00)
[2019-07-22] MEDS ORDERED: VITAMIN C PO SCH (09:00)
[2019-07-22] MEDS ORDERED: [UNRECOGNIZED DRUG - OTHER] PO SCH (09:00)
[2019-07-22] MEDS ORDERED: [UNRECOGNIZED DRUG - OTHER] PO SCH (09:00)
[2019-07-22 09:59] LABS: BUN/Creatinine Ratio 16.1 (8-20); EGFR African American 79.6 (>60); EGFR Non-African American 65.8 (>60)
--- NOTE | 2019-07-22 12:01 | PN ---
Progress Note - Progress Note Date of Service: 07/22/19 SOAP: Subjective: [Pt was seen sitting up in chair today. She states that she is doing well. Has pain after PT in the knee but no pain elsewhere. She denies any chest pain, SOB , nausea or vomiting. She would like to go home tomorrow. ] Objective: [General: Pt is alert and oriented x3. NAD. MSK, LLE: Dressing is c/d/i. +df/pf. calf soft and non tender. 2+ DP pulse Vital Signs Temp 99.8 F 07/22/19 11:29 Pulse 73 07/22/19 11:29 Resp 20 07/22/19 11:29 BP 124/67 07/22/19 11:29 Pulse Ox 99 07/22/19 11:29 Intake & Output 07/21/19 07/22/19 07/22/19 18:59 06:59 18:59 Intake Total 2260 3145 1119 Output Total 650 1200 Balance 1610 1945 1119 Intake: IV Fluids 4676 105 5453 LR 9548 104 3786 IVPB 55 110 ABX - CEFAZOLIN 55 110 Oral 560 2100 Output: Chowdary 650 1200 Other: # Bowel Movements 0 ] Assessment: [POD 1 LTKA ] Plan: [Continue with pain medication PT bid Dressing change tomorrow Eliquis 2.5mg bid DC home tomorrow. ]
[2019-07-22] MEDS: Vitamin B Complex TAB PO SCH (14:07)
[2019-07-22] MEDS: Pantoprazole TAB * 40 MG TAB PO SCH (21:03)
[2019-07-23] MEDS: Cyclobenzaprine TAB* 10 MG PO PRN ×2 (04:06→10:16)
[2019-07-23] MEDS: oxyCODONE/Acetamin 5/325 MG* TAB PO PRN ×2 (04:07→12:09)
[2019-07-23 06:09] LABS: Hematocrit 31 % (35-47); Hemoglobin 10.5 g/dL (12.0-16.0); Mean Platelet Volume 8.2 fL (7.4-10.4); Platelet Count 160 10^3/uL (150-450)
[2019-07-23] MEDS: Cholecalciferol TAB* 1000 UNITS PO SCH (07:45)
[2019-07-23] MEDS: Ferrous Sulfate TAB* 325 MG PO SCH (07:45)
[2019-07-23] MEDS: Apixaban* 2.5 MG TAB PO SCH (07:45)
[2019-07-23] MEDS: Magnesium Hydroxide LIQ* 30 ML UDC PO SCH (07:45)
[2019-07-23] MEDS: Docusate CAP* 100 MG PO SCH (07:45)
[2019-07-23] MEDS: Calcium Carbonate TAB* 1250 MG (CALCIUM 500 MG) PO SCH (07:45)
[2019-07-23] MEDS: Vitamin B Complex TAB PO SCH (07:45)
--- NOTE | 2019-07-23 07:49 | PN ---
Progress Note - Progress Note Date of Service: 07/23/19 SOAP: Subjective: OOB to chair, pain controlled well with po meds; no significant complaints Objective: Vital Signs Temp Pulse Resp BP Pulse Ox 99.5 F 83 16 129/60 94 07/23/19 07:44 07/23/19 07:44 07/23/19 07:44 07/23/19 07:44 07/23/19 07:44 Laboratory Last Values Hgb 10.5 g/dL (12.0-16.0) L 07/23/19 05:39 Hct 31 % (35-47) L 07/23/19 05:39 Plt Count 160 10^3/uL (150-450) 07/23/19 05:39 MPV 8.2 fL (7.4-10.4) 07/23/19 05:39 Sodium 140 mmol/L (135-145) 07/22/19 06:21 Potassium 4.0 mmol/L (3.5-5.0) 07/22/19 06:21 Chloride 108 mmol/L (101-111) 07/22/19 06:21 Carbon Dioxide 27 mmol/L (22-32) 07/22/19 06:21 Anion Gap 5 mmol/L (2-11) 07/22/19 06:21 BUN 14 mg/dL (6-24) 07/22/19 06:21 Creatinine 0.87 mg/dL (0.51-0.95) 07/22/19 06:21 Est GFR ( Amer) 79.6 (>60) 07/22/19 06:21 Est GFR (Non-Af Amer) 65.8 (>60) 07/22/19 06:21 BUN/Creatinine Ratio 16.1 (8-20) 07/22/19 06:21 Glucose 123 mg/dL (70-100) H 07/22/19 06:21 Calcium 9.0 mg/dL (8.6-10.3) 07/22/19 06:21 incision: c/d; dressing changed PE: NVI Assessment: s/p left TKA; POD#2 Plan: 1) Eliquis BID for DVT prophylaxis 2) PT/OT- WBAT 3) Home today; F/U with Dr. Messina in 2 weeks
[2019-07-23] MEDS: oxyCODONE TAB* 5 MG TAB PO PRN (07:51)
[2019-07-23 11:37] VITALS: BP 126/71
--- NOTE | 2019-07-23 13:50 | DS ---
AMENDED REPORT NOW INCLUDES DESIGNATED COSIGNER - ESIGNED BEFORE ADJUSTMENTS DISCHARGE SUMMARY: DATE OF ADMISSION: 07/21/19 DATE OF DISCHARGE: 07/23/19 SURGEON: Deja Messina MD.* (DICTATED BY JEANMARIE ZUNIGA) PRINCIPAL DIAGNOSIS: Severe end-stage osteoarthritis left knee. DISCHARGE DIAGNOSIS: Severe end-stage osteoarthritis left knee. DISCHARGE DISPOSITION: Discharged home in stable condition. HISTORY OF PRESENT ILLNESS: Ms. Dumont is a 63-year-old female with severe end- stage osteoarthritis of the left knee. She has failed conservative treatment and elected to proceed with a left total knee arthroplasty. HOSPITAL COURSE: Ms. Dumont was admitted electively to the hospital on 07/21/19 and underwent a left total knee arthroplasty. She tolerated the procedure well. Postoperatively, she was placed on Eliquis twice a day for DVT prophylaxis. On postoperative day 1, her H and H was 11 and 33; on postop day 2 , 10 and 31. At the time of discharge on 07/23/19, she was afebrile, her vital signs were stable, and she was ambulating well with physical therapy. DISCHARGE MEDICATIONS: 1. Eliquis 2.5 mg twice a day for 30 days. 2. Percocet 5/325 one to two tabs every 4 to 6 hours as needed for pain. 3. Flexeril 10 mg tabs 1 tab every 8 hours as needed for muscle spasms. 4. Colace 100 mg tabs 3 times daily as needed for constipation. 5. Vitamin D. 6. Ferrous sulfate 325 mg daily. 7. Protonix 40 mg q.h.s. 8. Vitamin B complex. 9. Multivitamin. 10. Melatonin 6 mg q.h.s. as needed. 11. Calcium carbonate. PHYSICAL EXAM UPON DISCHARGE: Wound was clean and dry, was healing well. There were no signs of infection. She was able to dorsiflex and plantarflex. She has 2+ dorsalis pedis pulse, intact sensation. Her calves were soft and nontender. DISCHARGE INSTRUCTIONS: She was discharged home. She plans to start outpatient physical therapy and a prescription was provided. She is weightbearing as tolerated. She was given Percocet for pain, Flexeril for muscle spasms, Colace for constipation, and Eliquis 2.5 mg twice a day for 30 days for DVT prophylaxis. She will see Dr. Messina back in 2 weeks. Her dressing was changed prior to discharge. Will keep that dressing on until Thursday. On Thursday, she can shower, letting soap and water run over the incision , pat the area dry, do not submerge in water. JEANMARIE ZUNIGA [id number]/[facility] #: [id number] MARIO
[2019-07-24] MEDS ORDERED: Scopolamine PATCH Remove* 1 NOTE MISC PATCH OFF ONE (11:00)
== END 2019-07-23 14:03 | disposition home or self-care (01) | DRG 302 ==
LOC: AA 06:18 → SSU 09:32
PROVIDERS: ADMIT Orthopaedic Surgery Adult Reconstructive Orthopaedic Surgery; ATTEND Orthopaedic Surgery Adult Reconstructive Orthopaedic Surgery
PROC: 0SRD069 Replacement of Left Knee Joint with Oxidized Zirconium on Polyethylene Synthetic Substitute, Cemented, Open Approach (ICD-10-PCS; principal; 2019-07-21 08:00)
DX: M17.12 Unilateral primary osteoarthritis, left knee (principal); K21.9 Gastro-esophageal reflux disease without esophagitis; I10 Essential (primary) hypertension; Z96.651 Presence of right artificial knee joint; E11.9 Type 2 diabetes mellitus without complications; E78.00 Pure hypercholesterolemia, unspecified; G47.33 Obstructive sleep apnea (adult) (pediatric); M25.762 Osteophyte, left knee; J30.2 Other seasonal allergic rhinitis; Z99.89 Dependence on other enabling machines and devices; Z88.8 Allergy status to other drugs, medicaments and biological substances; Z98.84 Bariatric surgery status
CPT/HCPCS: 36415; 80048; 85014; 85018; 85049; 88305; 88311; 93005; A9270-GY; C1776; J0690; J1100; J1170; J1240; J1885; J2250; J2405; J2704; J2795